=== PATIENT | female | born 1990 | race Hispanic/Latino ===

== ENCOUNTER 2023-07-03 16:24 | Inpatient (IN) | payer BC ==
[~2023-07-03] VITALS: Ht 162.6 cm; Wt 87.5 kg
[2023-07-04 01:13] LABS: HEMATOCRIT 34.9 % (35.0-50.0); MCH 31.8 (27-36); MCHC 34.4 g/dl (30-36); MCV 92.5 fl (81-99); RBC 3.77 M/ul (4.3-5.7); RDW 13.4 (10.5-15.0)
[2023-07-04 01:34] LABS: AMPHETAMINES, URINE NEGATIVE (NEGATIVE); BARBITURATES, URINE NEGATIVE (NEGATIVE); BENZODIAZEPINE, URINE NEGATIVE (NEGATIVE); BUPRENORPHINE, URINE NEGATIVE (NEGATIVE); CANNABINOID, URINE NEGATIVE (NEGATIVE); COCAINE, URINE NEGATIVE (NEGATIVE); ECSTASY, URINE NEGATIVE (NEGATIVE); FENTANYL, URINE NEGATIVE (NEGATIVE); METHADONE, URINE NEGATIVE (NEGATIVE); OPIATES, URINE NEGATIVE (NEGATIVE); OXYCODONE, URINE NEGATIVE (NEGATIVE); PHENCYCLIDINE, URINE NEGATIVE (NEGATIVE)
--- NOTE | 2023-07-04 01:42 | NUR ---
COVID SWAB DONE TO BOTH NARES AND SENT TO IN HOUSE LAB.
[2023-07-04 01:56] LABS: ABO B; ANTIBODY SCREEN NEGATIVE; RH POSITIVE
[2023-07-04 01:59] VITALS: BP 135/96
[2023-07-04 02:09] LABS: INFLUENZA B NAA NEGATIVE (NEGATIVE); RESPIRATORY SYNCYTIAL VIR NAA NEGATIVE (NEGATIVE)
--- NOTE | 2023-07-04 12:27 | PR ---
[facility] [address] [facility] [place], [place] [address] Signed Progress Notes IP Datetime Report Generated by CPN: 07/04/2023 12:27 PROGRESS NOTES: [id number] Impression: Normal Progression of Labor; Reassuring Heart Rate Procedures: Sterile Vag Exam Plan: Continue Present Management Other Plans: position changes VITAL SIGNS: [id number] Vital Signs: Reviewed; Within Normal Limits EXAM: [id number] Dilatation: 7.0 Effacement: 80 Station: -2 Contractions: approx q 3 to 4 min but not picking up well MEMBRANES: [id number] Comments: More painful. Making progress. Encouraged position changes. Will continue. FETUS A: [id number] FHR Baseline: 125 Variability: Moderate 6-25bpm Accelerations: 15X15 Decelerations: None FHR Category: Category I Presentation: Vertex FETUS B: [id number] Signing Physician: Larissa Felix MD Copies: ~ *Electronically Signed* 07/04/23 1227 LARISSA FELIX MD PATIENT NAME: LAST HINOJOSA PROGRESS NOTE DATE OF : 89 PHYSICIAN: LARISSA FELIX MD RPT #: [id number] REPORT IS CONFIDENTIAL AND NOT TO BE RELEASED WITHOUT AUTHORIZATION
--- NOTE | 2023-07-04 13:16 | PR ---
[facility] [address] [facility] [place], [place] [address] Signed Progress Notes IP Datetime Report Generated by CPN: 07/04/2023 13:16 PROGRESS NOTES: [id number] Impression: Normal Progression of Labor Procedures: Sterile Vag Exam Plan: Continue Present Management Other Plans: position changes VITAL SIGNS: [id number] Vital Signs: Reviewed; Within Normal Limits EXAM: [id number] Dilatation: 8.0 Effacement: 90 Station: 0 Contractions: appears to be every 2 to 3 min but not being picked up MEMBRANES: [id number] Comments: Very uncomfortable. Will continue. FETUS A: [id number] FHR Baseline: 125 Variability: Moderate 6-25bpm Accelerations: 15X15 Decelerations: None FHR Category: Category I Presentation: Vertex FETUS B: [id number] Signing Physician: Larissa Felix MD Copies: ~ *Electronically Signed* 07/04/23 1316 LARISSA FELIX MD PATIENT NAME: LAST HINOJOSA PROGRESS NOTE DATE OF : 89 PHYSICIAN: LARISSA FELIX MD RPT #: [id number] REPORT IS CONFIDENTIAL AND NOT TO BE RELEASED WITHOUT AUTHORIZATION
--- NOTE | 2023-07-04 15:55 | PR ---
[facility] [address] [facility] [place], [place] [address] Signed Progress Notes IP Datetime Report Generated by CPN: 07/04/2023 15:55 PROGRESS NOTES: [id number] Impression: Reassuring Heart Rate Procedures: Sterile Vag Exam Plan: Anesthesia Consult Other Plans: position changes VITAL SIGNS: [id number] Vital Signs: Reviewed; Within Normal Limits EXAM: [id number] Dilatation: 9.0 Effacement: 95 Station: 0 Contractions: q 3 to 5 min MEMBRANES: [id number] Comments: Very slow progress. Continued cervix from 6 to 12 o'clock which cannot be reduced with pushing. She is very tired and very uncomfortable. Discussed options and she would like an epidural. This may allow for rest as well as some augmentation. FETUS A: [id number] FHR Baseline: 125 Variability: Moderate 6-25bpm Accelerations: 15X15 Decelerations: Early FHR Category: Category I Presentation: Vertex FETUS B: [id number] Signing Physician: Larissa Felix MD Copies: ~ *Electronically Signed* 07/04/23 1555 LARISSA FELIX MD PATIENT NAME: LAST HINOJOSA PROGRESS NOTE DATE OF : 89 PHYSICIAN: LARISSA FELIX MD RPT #: [id number] REPORT IS CONFIDENTIAL AND NOT TO BE RELEASED WITHOUT AUTHORIZATION
--- NOTE | 2023-07-04 17:47 | PR ---
[facility] [address] [facility] [place], [place] [address] Signed Progress Notes IP Datetime Report Generated by CPN: 07/04/2023 17:46 PROGRESS NOTES: [id number] Impression: Reassuring Heart Rate Procedures: Sterile Vag Exam Plan: Augmentation Other Plans: position changes VITAL SIGNS: [id number] Vital Signs: Reviewed; Within Normal Limits EXAM: [id number] Dilatation: 9.0 Effacement: 90 Station: 0 Contractions: q 5 to 10 min MEMBRANES: [id number] Comments: No progress since last check. Much more comfortable after epidural. Contraction pattern inadequate. Will begin low dose pit. FETUS A: [id number] FHR Baseline: 125 Variability: Moderate 6-25bpm Accelerations: 15X15 Decelerations: Variable FHR Category: Category II Presentation: Vertex FETUS B: [id number] Signing Physician: Larissa Felix MD Copies: ~ *Electronically Signed* 07/04/23 1746 LARISSA FELIX MD PATIENT NAME: LAST HINOJOSA PROGRESS NOTE DATE OF : 89 PHYSICIAN: LARISSA FELIX MD RPT #: [id number] REPORT IS CONFIDENTIAL AND NOT TO BE RELEASED WITHOUT AUTHORIZATION
[2023-07-05 06:01] LABS: HEMATOCRIT 30.4 % (35.0-50.0); HEMOGLOBIN 10.5 g/dL (12.0-18.0); MCH 31.8 (27-36); MCHC 34.4 g/dl (30-36); MCV 92.4 fl (81-99); RBC 3.29 M/ul (4.3-5.7); RDW 13.3 (10.5-15.0)
--- NOTE | 2023-07-05 08:30 | PR ---
[facility] [address] [place], [place] [address] Signed PP Progress Notes Datetime Report Generated by RENNY: 07/05/2023 08:30 SUBJECTIVE: [id number] Pain: Within Normal Limits Nausea/Vomiting: Denies Vital Signs: [id number] Vital Signs: Reviewed; Within Normal Limits Cardiovascular: Not Done Respiratory: Not Done Abdomen/Uterus: Abnormal Lochia: Normal Vulva/Perineum: Not Done Breasts: Not Done CVA Tenderness: Not Done Extremities: Normal Incision: Not Applicable Progress: Normal Exam Comments: Fundus firm, NT @ U-2. H/H 10.5/30.4, WBC 14.2, plat 172k IMPRESSION/PLAN/PROCEDURES: [id number] Impression: Normal Progression; Difficulties Other Impression: pain with breast feeding Plan: Continue Present Management; Consult Progress Notes: Doing well overall. Will work on breast feeding today with probable discharge tomorrow. Signing Physician: Larissa Felix MD Copies: ~ *Electronically Signed* 07/05/23829 LARISSA FELIX MD PATIENT NAME: LAST HINOJOSA PROGRESS NOTE DATE OF : 89 PHYSICIAN: LARISSA FELIX MD RPT #: [id number] REPORT IS CONFIDENTIAL AND NOT TO BE RELEASED WITHOUT AUTHORIZATION
--- NOTE | 2023-07-06 08:46 | PR ---
[facility] [address] [facility] [place], [place] [address] Signed PP Progress Notes Datetime Report Generated by CPN: 07/06/2023 08:46 SUBJECTIVE: [id number] Pain: Within Normal Limits Nausea/Vomiting: Denies Vital Signs: [id number] Vital Signs: Reviewed; Within Normal Limits Cardiovascular: Not Done Respiratory: Not Done Abdomen/Uterus: Abnormal Lochia: Normal Vulva/Perineum: Not Done Breasts: Not Done CVA Tenderness: Not Done Extremities: Normal Incision: Not Applicable Progress: Normal Exam Comments: Fundus firm, NT @ U-1. IMPRESSION/PLAN/PROCEDURES: [id number] Impression: Normal Progression Other Impression: pain with breast feeding Plan: Discharge Procedures: None Progress Notes: Doing well. She is ready for D/C. Signing Physician: Larissa Felix MD Copies: ~ *Electronically Signed* 07/06/2346 LARISSA FELIX MD PATIENT NAME: LAST HINOJOSA PROGRESS NOTE DATE OF : 89 PHYSICIAN: LARISSA FELIX MD RPT #: [id number] REPORT IS CONFIDENTIAL AND NOT TO BE RELEASED WITHOUT AUTHORIZATION
== END 2023-07-06 13:18 | disposition home or self-care (01) | DRG 806 ==
LOC: FBC 16:24
PROVIDERS: ADMIT Obstetrics & Gynecology; ATTEND Obstetrics & Gynecology
PROC: 10E0XZZ Delivery of Products of Conception, External Approach (ICD-10-PCS; principal; 2023-07-04)
PROC: 3E0R3BZ Introduction of Anesthetic Agent into Spinal Canal, Percutaneous Approach (ICD-10-PCS; 2023-07-04)
PROC: 00HU33Z Insertion of Infusion Device into Spinal Canal, Percutaneous Approach (ICD-10-PCS; 2023-07-04)
PROC: 10907ZC Drainage of Amniotic Fluid, Therapeutic from Products of Conception, Via Natural or Artificial Opening (ICD-10-PCS; 2023-07-04)
DX: O48.0 Post-term pregnancy (principal); O98.32 Other infections with a predominantly sexual mode of transmission complicating childbirth; Z37.0 Single live birth; Z20.822 Contact with and (suspected) exposure to COVID-19; O76 Abnormality in fetal heart rate and rhythm complicating labor and delivery; Z3A.41 41 weeks gestation of pregnancy; A60.09 Herpesviral infection of other urogenital tract
CPT/HCPCS: 01960; 36415; 80307; 85027; 86850; 86900; 86901; 87502; A9270; C9803; J2590; J7121; U0002